=== PATIENT | male | born 1995 | race Two or more races ===

== ENCOUNTER 2018-02-26 18:11 | Emergency (ER) | payer MEDICAID ==
--- NOTE | 2018-02-26 18:07 | EDPHY ---
Medical Decision Making ED Course/Re-evaluation: CHIEF COMPLAINT: Hyperventilation, loss of consciousness HISTORY OF PRESENT ILLNESS: The patient is a 22 y/o male arriving via EMS after he lost consciousness and began hyperventilating. REVIEW OF SYSTEMS: A 10 point review of systems was performed and is negative with the exception of the elements mentioned in the history of present illness. PHYSICAL EXAM: HR, BP, O2 Sat, RR. Temp noted General Appearance: Alert, well hydrated, appropriate, and non-toxic appearing. Head: Atraumatic without scalp tenderness or obvious injury Eyes: Pupils equal, round, reactive to light and accommodation, EOMI, no trauma , no injection. Ears: Clear bilaterally, no perforation, normal landmarks Nose: Atraumatic, no rhinorrhea, clear. Throat: There is no erythema or exudates, no lesions, normal tonsils, mucus membranes moist. Neck: Supple, nontender, no lymphadenopathy. Respiratory: No retractions, no distress, no wheezes, and no accessory muscle use. Lungs are clear to auscultation bilaterally. Cardiovascular: Regular rate and rhythm, no murmurs, rubs, or gallops. Bilateral carotid, radial, dorsalis pedis, and posterior tibial pulses intact. Good capillary refill all extremities. Gastrointestinal: Abdomen is soft, nontender, non-distended, no masses, no rebound, no guarding, no peritoneal signs. Musculoskeletal: Normal active ROM of all extremities, atraumatic. Neurological: Alert, appropriate, and interactive. The patient has normal DTRs and non-focal cranial nerves, motor, sensory, and cerebellar exam. Skin: No rashes, good turgor, no nodules on palpation. Past medical history: Past surgical history: Family history: Social history: DIAGNOSTICS/PROCEDURES/CRITICAL CARE TIME: DIFFERENTIAL DIAGNOSIS: MEDICAL DECISION MAKING: Report Scribed for: Yoni Hines Report Scribed by: Sara Benjamin Date of Report: 02/26/18 Time of Report: 18:06
[2018-02-26] MEDS ORDERED: LORazepam 2 MG/ML INJ IVP ONE (18:18)
[2018-02-26] MEDS ORDERED: NS 1,000 ML IV ONE (18:18)
[2018-02-26 18:19] VITALS: RESP 16
[2018-02-26] MEDS ORDERED: LORazepam 2 MG/ML INJ ONE (18:19)
--- NOTE | 2018-02-26 18:20 | EDPHY ---
H & P Time Seen by Provider: 02/26/18 18:19 HPI/ROS: HPI CHIEF COMPLAINT: Hyperventilation, panic attack HISTORY OF PRESENT ILLNESS: Patient is a 22-year-old male, presents to the emergency room after he was arrested. He was arrested and brought [facility], when he got to [facility] he started hyperventilate and had a panic attack. He was hyperventilating approximately 70 times per minute. This caused him to have arm spasms and carpal pedal spasm. Patient arrives to the emergency room by EMS hyperventilating and having a panic attack. Past Medical History: Anxiety/panic attack Past Surgical History: No recent surgical history Social History: Denies drugs alcohol tobacco. Family History: Noncontributory. ROS REVIEW OF SYSTEMS: A comprehensive 10 point review of systems is otherwise negative aside from elements mentioned in the history of present illness. Exam Constitutional hyperventilating, anxious, triage nursing summary reviewed, vital signs reviewed, awake/alert. Eyes normal conjunctivae and sclera, EOMI, PERRLA. HENT normal inspection, atraumatic, moist mucus membranes, no epistaxis, neck supple/ no meningismus, no raccoon eyes. Respiratory hyperventilating, tachypnea. Clear lungs. Cardiovascular rate normal, regular rhythm, no murmur, no edema, distal pulses normal. Gastrointestinal soft, non-tender, no rebound, no guarding, normal bowel sounds, no distension, no pulsatile mass. Genitourinary no CVA tenderness. Musculoskeletal no midline vertebral tenderness, full range of motion, no calf swelling, no tenderness of extremities, no meningismus, good pulses, neurovascularly intact. Skin pink, warm, & dry, no rash, skin atraumatic. Neurologic awake, alert and oriented x 3, AAOx3, moves all 4 extremities equally, motor intact, sensory intact, CN II-XII intact, normal cerebellar, normal vision, normal speech. Psychiatric normal mood/affect. Heme/Lymph/Immune no lymphadenopathy. Differential Diagnosis: Includes but is not limited to in a particular order acute anxiety attack, panic attack, hyperventilation syndrome Medical Decision Making: Plan for this patient IV established with IV Ativan 1 mg, 1 L normal saline fluids and re-evaluate. Full monitoring and evaluation advisor. Re-evaluation: 1920: Patient re-evaluated this time resting comfortably no acute distress. His vital signs are stable. He has a pulse ox 97%, blood pressure 118/62 heart rate 83. He is on room air. He received 1 mg IV Ativan for panic attack , he is much improved. He denies chest pain or shortness of breath. He otherwise feels well. He is medically cleared to go to [facility]. Source: Patient, EMS Constitutional: Initial Vital Signs Temperature (C) 36.8 C 02/26/18 18:11 Heart Rate 86 02/26/18 18:11 Respiratory Rate 16 02/26/18 18:11 Blood Pressure 118/86 H 02/26/18 18:11 O2 Sat (%) 30 L 02/26/18 18:11 O2 Delivery Mode Room Air Allergies/Adverse Reactions: No Known Allergies Allergy (Verified 08/19/12 21:17) Home Medications: Medication Instructions Recorded Ibuprofen [Motrin (*)] 600 mg PO Q6 PRN #30 tab 08/02/12 Methocarbamol [Robaxin 750 mg (*)] 750 - 1,500 mg PO QID PRN #30 tab 08/02/12 Cyclobenzaprine Hcl [Flexeril] 5 mg PO TID #15 tab 08/19/12 Medical Decision Making - Data Points Medications Given: Discontinued Medications Sodium Chloride (Ns) 1,000 mls @ 0 mls/hr IV ONCE ONE PRN Reason: Wide Open Stop: 02/26/18 18:19 Last Admin: 02/26/18 18:21 Dose: 1,000 mls Lorazepam (Ativan Injection) 1 mg IVP EDNOW ONE Stop: 02/26/18 18:19 Last Admin: 02/26/18 18:20 Dose: 1 mg Departure - Departure Disposition: Home, Routine, Self-Care Clinical Impression: Panic attack Condition: Good Instructions: Anxiety (ED), Panic Attack (ED) Additional Instructions: 1. Medically cleared for [facility]. Referrals: Patient,NotPresent [Unknown] - As per Instructions
[2018-02-26 19:41] VITALS: BP 112/68; PULSE 71; TEMP 97.9; O2SAT 95
== END 2018-02-26 19:41 | disposition home or self-care (01) ==
LOC: EDUNIT#
DX: F41.0 Panic disorder [episodic paroxysmal anxiety] (principal)
CPT/HCPCS: 96374; J2060